=== PATIENT | female | born 1990 | race Hispanic/Latino ===

== ENCOUNTER 2023-12-21 08:30 | Inpatient (IN) | payer BC ==
[2023-12-27 13:34] LABS: Hematocrit 33.8 % (34.9-44.5); Mean Corpuscular HGB CONC 35.5 g/dL (32.0-36.0); Mean Corpuscular Hemoglobin 32.9 pg (27.0-33.0); Mean Corpuscular Volume 92.6 fl (81.6-98.3); Mean Platelet Volume 11.1 fl (7.4-10.4); Platelet Count 206 10x3/uL (150-450); RBC Distribution Width 13.3 % (11.5-14.5); Red Blood Cell (RBC) Count 3.65 10x6/uL (3.90-5.03); White Blood Cell (WBC) Count 7.6 10x3/uL (3.5-10.5)
[2023-12-27 14:22] LABS: HBsAg Index 0.18 S/CO (0-0.99); HIV (1/2) Antibody/Antigen Non-Reactive (NonReactive); Hep B Surf Ag Non-Reactive S/CO (NonReactive)
[2023-12-27 14:23] LABS: Syphilis Antibody Nonreactive (Nonreactive); Syphilis Antibody Index 0.07 S/CO (<1.00 Non-Reactive)
[2023-12-28 10:28] VITALS: BMI 30.7
[2023-12-28] MEDS ORDERED: Methylergonovine 0.2 MG/ML VIAL IM PRN (11:15)
[2023-12-28] MEDS ORDERED: Diphenoxylate HCl/Atropine Tablet PO PRN (11:15)
[2023-12-28] MEDS ORDERED: Tranexamic Acid 1,000 MG/10 ML VIAL IVP PRN (11:15)
[2023-12-28] MEDS ORDERED: Famotidine/PF 20 mg/2ml Vial SLOW IVP PRN (11:15)
[2023-12-28] MEDS ORDERED: Bicitra 30 ML UDCUP PO PRN (11:15)
[2023-12-28] MEDS ORDERED: hydrALAZINE 20 MG/ML VIAL SLOW IVP PRN ×2 (11:15→16:33)
[2023-12-28] MEDS ORDERED: Misoprostol 200 MCG TAB PR PRN (11:15)
[2023-12-28] MEDS ORDERED: Lactated Ringer's 1,000 ML IV SCH (11:15)
[2023-12-28] MEDS ORDERED: Ondansetron PF 4 MG/2 ML Vial IVP PRN ×4 (11:15→16:33)
[2023-12-28] MEDS ORDERED: Carboprost 250 MCG/ML AMP IM PRN (11:15)
[2023-12-28] MEDS ORDERED: CEFAZOLIN 2 GM in Sodium Chloride 0.9% 100 ML IVPB SCH (11:15)
[2023-12-28] MEDS ORDERED: Oxytocin 30 units/NS 500 ML 500 ML IV SCH (11:15)
[2023-12-28] MEDS ORDERED: Promethazine HCl 25 MG/ML VIAL IM PRN ×2 (11:15→12:07)
[2023-12-28] MEDS ORDERED: Naloxone HCl 0.4 mg/ml Vial IV PRN (12:07)
[2023-12-28] MEDS ORDERED: fentaNYL 50 mcg/mL 1 mL Vial SLOW IVP PRN (12:07)
[2023-12-28] MEDS ORDERED: Meperidine HCl/PF 25 MG (1 mL) VIAL SLOW IVP PRN (12:07)
[2023-12-28] MEDS ORDERED: Naloxone HCl 0.4 mg/ml Vial IVP PRN ×2 (12:07)
[2023-12-28] MEDS ORDERED: diphenhydrAMINE 50 MG/ML VIAL IVP PRN (12:07)
[2023-12-28] MEDS ORDERED: Moisturizing Cream (Eucerin) 113 GM JAR TOP PRN (12:07)
[2023-12-28] MEDS ORDERED: Communication Order-Pharmacy FS SCH (12:15)
[2023-12-28] MEDS ORDERED: Lanolin Ointment 7 GM TUBE TOP PRN (16:33)
[2023-12-28] MEDS ORDERED: Acetaminophen 325 MG TAB PO PRN (16:33)
[2023-12-28] MEDS ORDERED: diphenhydrAMINE 25 MG CAP PO PRN (16:33)
[2023-12-28] MEDS ORDERED: Bisacodyl 10 MG SUPP PR PRN (16:33)
[2023-12-28] MEDS ORDERED: Simethicone Chewable 80 MG TAB PO PRN (16:33)
[2023-12-28] MEDS: Ketorolac Tromethamine 30 MG (1 mL) VIAL ONE (17:11)
[2023-12-28] MEDS: Sodium Bicarbonate 2.5 MEQ/5 ML SDV ONE (17:11)
[2023-12-28] MEDS: Dexamethasone 4 mg/ml Vial ONE (17:11)
[2023-12-28] MEDS: Ondansetron PF 4 MG/2 ML Vial ONE (17:11)
[2023-12-28] MEDS: Phenylephrine 40 MG/NS 250 ML 250 ML ONE (17:11)
[2023-12-28] MEDS: Dexmedetomidine 200 MCG/2 ML VIAL ONE (17:11)
[2023-12-28] MEDS: Morphine PF 10 MG/10 ML VIAL ONE (17:11)
[2023-12-28] MEDS: Oxytocin 10 UNITS/ML VIAL ONE (17:11)
[2023-12-28] MEDS: Sodium Chloride 0.9% 10 ML ONE (17:12)
[2023-12-28] MEDS: Ketorolac Tromethamine 30 MG (1 mL) VIAL IVP SCH (18:12)
[2023-12-28] MEDS: Docusate 100 MG CAP PO SCH (22:05)
[2023-12-28] MEDS: Ferrous Sulfate 325 MG TAB PO SCH (23:42)
[2023-12-29] MEDS ORDERED: HYDROcodone/Acetaminophen 5/325 mg Tablet PO PRN (00:15)
[2023-12-29 03:59] LABS: Hematocrit 26.7 % (34.9-44.5); Hemoglobin 9.4 g/dL (12.0-15.5); Mean Corpuscular HGB CONC 35.2 g/dL (32.0-36.0); Mean Corpuscular Hemoglobin 32.8 pg (27.0-33.0); Mean Platelet Volume 11.4 fL (7.4-10.4); Platelet Count 180 10x3/uL (150-450); RBC Distribution Width 13.3 % (11.5-14.5); Red Blood Cell (RBC) Count 2.87 10x6/uL (3.90-5.03)
[2023-12-29] MEDS: Prenatal Vitamin 1 TAB PO SCH (10:06)
[2023-12-29] MEDS: HYDROcodone/Acetaminophen 5/325 mg Tablet PO PRN (10:06)
[2023-12-29] MEDS: Ibuprofen 800 MG TAB PO SCH (18:02)
[2023-12-30] MEDS: Boostrix 0.5 ML (Tdap) VIAL (>/=7 yrs of age) IM ONE (07:37)
[2023-12-30 08:36] VITALS: BP 102/57; TEMP 97.2
== END 2023-12-30 13:30 | disposition home or self-care (01) | DRG 788 ==
LOC: CSHLD 12-28 10:00 → OBSVTOIN 12-28 11:15 → CSHPP 12-28 15:35
PROVIDERS: ADMIT Student in an Organized Health Care Education/Training Program; ATTEND Student in an Organized Health Care Education/Training Program
PROC: 10D00Z1 Extraction of Products of Conception, Low, Open Approach (ICD-10-PCS; principal; 2023-12-28)
DX: O32.1XX0 Maternal care for breech presentation, not applicable or unspecified (principal); Z3A.39 39 weeks gestation of pregnancy; Z37.0 Single live birth
CPT/HCPCS: 36415; 51702; 85027; 86780; 86850; 86900; 86901; 87340; 87389; J1100; J1885; J2274; J2405; J2590